=== PATIENT | female | born 1955 | race Caucasian/White ===

== ENCOUNTER → 2023-03-30 | Day surgery (SDC) | payer OTHER ==
[~2023-03-30] VITALS: Ht 157.5 cm; Wt 68.0 kg
[~2023-03-30] MED LIST: AMLO1TAB22 PO; ATOR80TA PO; BUPIVACAINE 0.5% P/F INJ 10 ML VIAL ONE; BUPR-413 PO; DexAMETHasone SOD PHOS 10MG/1ML VIAL INJ ONE; ESCI20TA PO; HYDR25TA5 PO; HYDROmorphone HCL 2 MG/ML VL/or syr IV PRN; LORA-1123 PO; MEPERIDINE HCL (25 MG/ML) 1ML VIAL ONE; MET50T PO; METOCLOPRAMIDE HCL 5MG/ml INJ 2ml VIAL IV PRN; MIDAZOLAM HCL 2MG/2ML 2ml VIAL (1mg/ml) ONE; MORPHINE SULFATE INJ 2 MG/ml SYRG IV PRN; ONDANSETRON HCL 4 MG/2 ML VIAL ONE; PROPOFOL 10 MG/ML 20 ML IV ONE; SODIUM CHLORIDE LOCK 10 ML ONE; ceFAZolin 2 GM/D5W100ml 100 ML IV ONE; fentaNYL CITRATE 100 MCG/2 ML VL ONE
[2023-03-30 12:37] VITALS: TEMP 97.9; O2SAT 88
[2023-03-30 13:34] VITALS: BP 103/59; PULSE 64; RESP 15; O2SAT 94
== END | disposition home or self-care (01) ==
LOC: SUR 07:58
PROVIDERS: ATTEND Orthopaedic Surgery Sports Medicine
DX: Z47.2 Encounter for removal of internal fixation device (principal); I10 Essential (primary) hypertension; F32.A Depression, unspecified; Z79.899 Other long term (current) drug therapy; Z98.890 Other specified postprocedural states
CPT/HCPCS: 20680; 73560; J1100; J2175; J2250; J2405; J2704; J3010; J3490; 76000